=== PATIENT | female | born 1990 | race Caucasian/White ===

== ENCOUNTER → 2024-06-24 | Emergency (ER) | payer BC, MEDICAID ==
[~2024-06-24] VITALS: Ht 157.5 cm; Wt 65.9 kg
[~2024-06-24] MED LIST: CYAN1TAB51 PO; PREN1TAB22 PO
[2024-06-24 22:40] VITALS: TEMP 98.2
[2024-06-25] MEDS: IBUPROFEN 400 MG TABLET PO ONE (00:53)
[2024-06-25] MEDS: METOCLOPRAMIDE HCL 10 MG TABLET PO ONE (00:53)
[2024-06-25] MEDS: ACETAMINOPHEN 500 MG TABLET PO ONE (00:53)
[2024-06-25 01:15] LABS: BASOPHILS % (AUTO) 1.4 % (0.0-2.0); EOSINOPHILS % (AUTO) 5.4 % (1.0-6.0); HEMATOCRIT 39.2 % (36-46); HEMOGLOBIN 13.3 g/dL (12.0-16.0); LYMPHOCYTES # (AUTO) 2.2 K/uL (1.0-4.8); LYMPHOCYTES % (AUTO) 26.8 % (22.0-44.0); MEAN CORPUSCULAR HEMOGLOBIN 30.1 pg (26.0-34.0); MEAN CORPUSCULAR VOLUME 89 fL (80-100); MONOCYTES # (AUTO) 0.8 K/uL (0.1-1.0); MONOCYTES % (AUTO) 9.4 % (2.0-9.0); NEUTROPHILS # (AUTO) 4.7 K/uL (1.8-7.7); PLATELET COUNT (AUTO) 255 K/uL (150-450); RED BLOOD CELL COUNT(AUTO) 4.42 MIL/uL (4.00-5.20); RED CELL DISTRIBUTION WIDTH 13.4 % (11.5-14.5); WHITE BLOOD COUNT (AUTO) 8.2 K/uL (4.5-11.0)
[2024-06-25 01:24] LABS: ANION GAP 4 mmol/L (8-16); CALCIUM, TOTAL 9.1 mg/dL (8.8-10.5); CARBON DIOXIDE 30 mmol/L (22-29); CHLORIDE 103 mmol/L (98-107); CREATININE 0.83 mg/dL (0.60-1.30); GLOMERULAR FILTR. RATE CALC > 60 mL/min (>60); GLUCOSE,RANDOM 111 mg/dL (70-110); POTASSIUM 4.3 mmol/L (3.5-5.1); SODIUM SERUM 137 mmol/L (136-145); UREA NITROGEN, BLOOD 12 mg/dL (7-18)
[2024-06-25 03:18] VITALS: BP 112/63; PULSE 61; RESP 15; O2SAT 98
== END | disposition home or self-care (01) ==
LOC: EMS 22:52
DX: G44.209 Tension-type headache, unspecified, not intractable (principal); Z88.1 Allergy status to other antibiotic agents
CPT/HCPCS: 80048; 84703; 85025; 99284